=== PATIENT | female | born 1970 | race Caucasian/White ===

== ENCOUNTER 2016-08-10 16:38 | Emergency (ER) | payer BC, OTHER ==
[2016-08-10 16:48] VITALS: BP 184/97
--- NOTE | 2016-08-10 16:57 | UC ---
Skin Complaint HPI - HPI Summary HPI Summary: believes she got in to poison staci last week spreading on arms, neck, face and legs, itchy red vesicles - History of Current Complaint Chief Complaint: UCRash Time Seen by Provider: 08/10/16 16:45 Stated Complaint: RASH Hx Obtained From: Patient ?: No Onset/Duration: Sudden Onset, Lasting Weeks - 1, Still Present, Worse Since - daily Skin Exposure Onset/Duration: Weeks Ago - 1 Timing: Constant Onset Severity: Moderate Current Severity: Moderate Pain Intensity: 6 Pain Scale Used: 0-10 Numeric Location: Diffuse Character: Pruritus, Redness, Raised, Painful Aggravating: Nothing Alleviating: Nothing Associated Signs & Symptoms: Positive: Negative Related History: Possible Reaction to: Environmental Exposure - Allergy/Home Medications Allergies/Adverse Reactions: Allergies Allergy/AdvReac Type Severity Reaction Status Date / Time No Known Allergies Allergy Unverified 09/18/12 15:35 Home Medications: Home Medications Control 08/10/16 [History] Levothyroxine TAB* [Synthroid 25 MCG TAB*] 25 mcg PO 0800 08/10/16 [History Confirmed 08/10/16] Lorazepam [Ativan 1 MG TAB] 0.5 mg PO 08/10/16 [History] Review of Systems Constitutional: Negative Skin: Negative - base with vesicles, Rash Eyes: Negative ENT: Negative Respiratory: Negative Cardiovascular: Negative Gastrointestinal: Negative Genitourinary: Negative Motor: Negative Neurovascular: Negative Musculoskeletal: Negative Neurological: Negative Psychological: Negative All Other Systems Reviewed And Are Negative: Yes PMH/Surg Hx/FS Hx/Imm Hx Previously Healthy: No Endocrine History Of: Reports: Thyroid Disease Denies: Diabetes, Hyperthyroidism, Hypothyroidism Cardiovascular History Of: Denies: Cardiac Disorders, Hypertension Neurological History Of: Denies: TIA, Seizures Psychological History Of: Denies: Anxiety, Depression Cancer History Of: Denies: Breast Cancer - Surgical History Surgical History: None - Family History Known Family History: Positive: None - Social History Occupation: Employed Full-time Lives: With Family Alcohol Use: Weekly Substance Use Type: None Smoking Status (MU): Never Smoked Tobacco Physical Exam Triage Information Reviewed: Yes Appearance: Well-Nourished, Ill-Appearing, Pain Distress Vital Signs: Initial Vital Signs Temp 97.7 F 08/10/16 16:42 Pulse 66 08/10/16 16:42 Resp 18 08/10/16 16:42 BP 184/97 08/10/16 16:42 Pulse Ox 100 08/10/16 16:42 Vital Signs Reviewed: Yes Eye Exam: Normal Eyes: Positive: Conjunctiva Clear ENT Exam: Normal ENT: Positive: Normal ENT inspection, Hearing grossly normal. Negative: Nasal congestion, Nasal drainage, Trismus, Muffled/hoarse voice Dental Exam: Normal Neck exam: Normal Neck: Positive: Supple, Nontender, No Lymphadenopathy Respiratory Exam: Normal Respiratory: Positive: Chest non-tender, No respiratory distress, No accessory muscle use Cardiovascular Exam: Normal Cardiovascular: Positive: Pulses Normal, Brisk Capillary Refill Musculoskeletal Exam: Normal Musculoskeletal: Positive: Strength Intact, ROM Intact, No Edema Neurological Exam: Normal Neurological: Positive: Alert, Muscle Tone Normal Psychological Exam: Normal Skin Exam: Other Skin: Positive: rashes - scatterd red rash with vesicles arms, legs, face neck Course/Dx - Course Course Of Treatment: re-check BP and follow with PCP, prednisone, otc lotions for comfort, benadryl prn - Differential Diagnoses - Skin Complaint Differential Diagnoses: Cellulitis, Poison Staci, Urticaria, Other - HTN - Diagnoses Provider Diagnoses: Poison Staci, High Blood Pressure with out current DX of HTN Discharge - Discharge Plan Condition: Stable Disposition: HOME Prescriptions: predniSONE TAB* [Deltasone TAB*] 10 mg PO DAILY #48 tab Patient Education Materials: Prednisone (By mouth), Poison Staci (ED), DASH Eating Plan (ED), Hypertension (ED) Referrals: Ashley Hong NP [Primary Care Provider] - 2 Weeks
== END 2016-08-10 17:02 | disposition home or self-care (01) ==
LOC: UCEAST 16:38
DX: L23.7 Allergic contact dermatitis due to plants, except food (principal); R03.0 Elevated blood-pressure reading, without diagnosis of hypertension
CPT/HCPCS: 99212; G0463